=== PATIENT | female | born 1980 | race Caucasian/White ===

== ENCOUNTER 2016-11-29 18:17 | Emergency (ER) | payer OTHER ==
[2016-11-29 18:33] VITALS: BP 140/92
--- NOTE | 2016-11-29 19:03 | EDM.PDOC ---
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 feels slightly better now but hurts and feels not normal. - Related Data Allergies/ADRs: Allergies Allergy/AdvReac Type Severity Reaction Status Date / Time acetaminophen Allergy Itching Verified 11/18/15 16:41 adhesive Allergy Other Verified 11/18/15 16:41 Latex, Natural Rubber Allergy Hives Verified 11/18/15 16:41 Penicillins Allergy Anaphylactic Verified 11/18/15 16:41 Shock Home Meds: Home Meds Ibuprofen 200 mg PO ASDIRECTED PRN 11/18/15 [History] Past Medical History HEENT History: Reports: Impaired vision Other HEENT History: wears glasses Cardiovascular History: Reports: Blood clots/VTE/DVT Respiratory History: Reports: PE Other Respiratory History: blood clots a month and half go, was in [place], sent her home on lovenox shots, not in hospital Genitourinary History: Reports: None 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 , 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 Musculoskeletal History: Reports: None Neurological History: Reports: None Psychiatric History: Reports: None Endocrine/Metabolic History: Reports: Obesity/BMI 30+ Hematologic History: Reports: None Other Hematologic History: protien c deficiency Immunologic History: Reports: None Oncologic (Cancer) History: Reports: None Dermatologic History: Reports: None - Infectious Disease History Infectious Disease History: Reports: Chicken pox - Past Surgical History Head Surgeries/Procedures: Reports: None GI Surgical History: Reports: Appendectomy Female Surgical History: Reports: section, D&C Other Female Surgeries/Procedures: ectopic Social & Family History - Family History Family Medical History: Noncontributory - Tobacco Use Smoking Status *Q: Current Every Day Smoker Years of Tobacco use: 23 Packs/Tins Daily: 0.2 Used Tobacco, but Quit: Yes Month Tobacco Last Used: november Second Hand Smoke Exposure: Yes - Caffeine Use Caffeine Use: Reports: Coffee, Soda, Tea - Recreational Drug Use Recreational Drug Use: No - Sexual History Sexual History: Reports: Sexually active - Living Situation & Occupation Living situation: Reports: with significant other Occupation: employed ED ROS GENERAL - Review of Systems Review Of Systems: ROS reveals no pertinent complaints other than HPI. ED EXAM, HEAD INJURY - Physical Exam Exam: See Below Exam Limited By: No limitations General Appearance: alert, WD/WN, mild distress, other (crying) Head: scalp swelling, scalp tenderness, other (top of head). No: Luu's Sign , raccoon eyes Nexus Criteria: No: posterior, midline cervical tenderness, evidence of intoxication, altered level of consciousness, focal neurological deficit, painful distracting injuries Eyes: bilateral eye: PERRL (pupils ER @ 4mm) Ears: hearing grossly normal Throat/Mouth: Normal voice, No airway compromise Neck: non-tender, full range of motion Respiratory: no respiratory distress Cardiovascular: regular rate, rhythm GI/Abdominal Exam (Abbreviated): soft, non tender Neurologic: no motor/sensory deficits, alert, oriented x 3, other (crying) Skin: Normal color, Warm/dry Course - Vital Signs Last Recorded V/S: Last Vital Signs Temp 36.8 C 11/29/16 18:32 Pulse 97 11/29/16 18:32 Resp 16 11/29/16 18:32 BP 140/92 H 11/29/16 18:32 Pulse Ox 97 11/29/16 18:32 - Orders/Labs/Meds Orders: Active Orders 24 hr Category Date Time Status Head wo Cont [CT] Urgent Exams 11/29/16 19:00 Taken - Re-Assessments/Exams Free Text/Narrative Re-Assessment/Exam: 11/29/16 19:43 results discussed with Pt. feeling better but head still hurts. Departure - Departure Time of Disposition: 19:44 Disposition: Home, Self-Care 01 Condition: good Clinical Impression: Concussion Qualifiers: Encounter type: initial encounter Loss of consciousness presence/duration: without LOC Qualified Code(s): S06.0X0A - Concussion without loss of consciousness, initial encounter Instructions: Concussion, Adult, [id number] Forms: ED Department Discharge Additional Instructions: 1) rest 2) ice to swelling 3) recheck if has further signs of concussion - My Orders Last 24 Hours: My Active Orders 11/29/16 19:00 Head wo Cont [CT] Urgent - Assessment/Plan Last 24 Hours: My Active Orders 11/29/16 19:00 Head wo Cont [CT] Urgent
== END 2016-11-29 19:50 | disposition home or self-care (01) ==
LOC: DL.ED 18:17
DX: S06.0X0A Concussion without loss of consciousness, initial encounter (principal); W22.09XA Striking against other stationary object, initial encounter; Z86.718 Personal history of other venous thrombosis and embolism; E66.9 Obesity, unspecified; Z68.30 Body mass index [BMI] 30.0-30.9, adult; F17.200 Nicotine dependence, unspecified, uncomplicated; Z88.0 Allergy status to penicillin; Z91.040 Latex allergy status; Z88.8 Allergy status to other drugs, medicaments and biological substances; Z91.09 Other allergy status, other than to drugs and biological substances
CPT/HCPCS: 70450; 99283

== ENCOUNTER 2017-01-02 17:32 | Emergency (ER) | payer OTHER ==
--- NOTE | 2017-01-02 17:36 | EDM.PDOC ---
ED HPI GENERAL MEDICAL PROBLEM - General Chief Complaint: Lower Extremity Injury/Pain Stated Complaint: LEG PAIN [id number] Time Seen by Provider: 01/02/17 17:36 Source of Information: Reports: Patient, Old Records, RN, RN Notes Reviewed History Limitations: Reports: No Limitations - History of Present Illness INITIAL COMMENTS - FREE TEXT/NARRATIVE: Pt reports Hx of B/L lower extremity DVTs and PEs who lost her insurance and has not been on coumadin for about 2 to 3 months. Pt developed aching in the B/ L legs 3 weeks ago and came to the ER today concerned that she should be back on the anticoagulant tx. Now she has insurance and can get her medication. Denies CP, cough, SOB, or any other new Sx's. Onset: Gradual Duration: Constant Location: Reports: Lower Extremity, Left, Lower Extremity, Right Quality: Reports: Ache Severity: Moderate Improves with: Reports: None Worsens with: Reports: None Context: Denies: Activity, Exercise, Lifting, Sick Contact, Trauma Associated Symptoms: Reports: No Other Symptoms Bilateral Lower Leg Pain Score (Numeric/FACES): 6 - Related Data Allergies Allergy/AdvReac Type Severity Reaction Status Date / Time acetaminophen Allergy Itching Verified 11/18/15 16:41 adhesive Allergy Other Verified 11/18/15 16:41 Latex, Natural Rubber Allergy Hives Verified 11/18/15 16:41 Penicillins Allergy Anaphylactic Verified 11/18/15 16:41 Shock Home Meds: Home Meds Ibuprofen 200 mg PO ASDIRECTED PRN 11/18/15 [History] Past Medical History HEENT History: Reports: Impaired Vision Other HEENT History: wears glasses Cardiovascular History: Reports: Blood Clots/VTE/DVT Respiratory History: Reports: PE Other Respiratory History: blood clots a month and half go, was in [place], sent her home on lovenox shots, not in hospital Genitourinary History: Reports: None 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 , 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 Musculoskeletal History: Reports: None Neurological History: Reports: None Psychiatric History: Reports: None Endocrine/Metabolic History: Reports: Obesity/BMI 30+ Hematologic History: Reports: None Other Hematologic History: protien c deficiency Immunologic History: Reports: None Oncologic (Cancer) History: Reports: None Dermatologic History: Reports: None - Infectious Disease History Infectious Disease History: Reports: Chicken Pox - Past Surgical History HEENT Surgical History: Reports: Other (See Below) Female Surgical History: Reports: Section, D&C Social & Family History - Family History Family Medical History: Noncontributory - Tobacco Use Smoking Status *Q: Current Every Day Smoker Years of Tobacco use: 23 Packs/Tins Daily: 0.2 Used Tobacco, but Quit: Yes Month Tobacco Last Used: november Second Hand Smoke Exposure: Yes - Caffeine Use Caffeine Use: Reports: Coffee, Soda, Tea - Recreational Drug Use Recreational Drug Use: No - Sexual History Sexual History: Reports: Sexually Active - Living Situation & Occupation Living situation: Reports: with Significant Other Occupation: Employed Review of Systems - Review of Systems Review Of Systems: ROS reveals no pertinent complaints other than HPI. ED EXAM, GENERAL - Physical Exam Exam: See Below Exam Limited By: No Limitations General Appearance: Alert, WD/WN, No Apparent Distress, Obese Nose: Normal Inspection, Normal Mucosa, No Blood Throat/Mouth: Normal Inspection Head: Atraumatic, Normocephalic Neck: Normal Inspection, Supple, Non-Tender, Full Range of Motion Respiratory/Chest: No Respiratory Distress, Lungs Clear, Normal Breath Sounds, No Accessory Muscle Use, Chest Non-Tender Cardiovascular: Normal Peripheral Pulses, Regular Rate, Rhythm, No Edema, No Gallop, No JVD, No Murmur, No Rub GI/Abdominal: Normal Bowel Sounds, Soft, Non-Tender, No Distention Back Exam: Normal Inspection, Full Range of Motion. No: CVA Tenderness (L), CVA Tenderness (R) Extremities: Normal Range of Motion, No Pedal Edema, Normal Capillary Refill, Leg Pain (B/L generalized lower leg tenderness, no erythema, swelling, or increased warmth.). No: Kathi's Sign Neurological: Alert, Oriented, CN II-XII Intact, Normal Cognition, No Motor/ Sensory Deficits Psychiatric: Anxious Skin Exam: Warm, Dry, Intact, Normal Color, No Rash Course - Vital Signs Last Recorded V/S: Last Vital Signs Temp 36.0 C 01/02/17 17:42 Pulse 87 01/02/17 17:42 Resp 18 01/02/17 17:42 BP 118/60 01/02/17 17:42 Pulse Ox 98 01/02/17 17:42 - Orders/Labs/Meds Labs: Laboratory Tests 0601/02/17 01/02/17 Range/Units 18:05 18:05 18:05 WBC 8.8 (5.0-10.0) 10^3/uL RBC 3.52 L (4.2-5.4) 10^6/uL Hgb 12.3 (12.0-16.0) g/dL Hct 36.6 L (37.0-47.0) % MCV 104.0 H (80-100) fL MCH 34.9 H (27.0-34.0) pg MCHC 33.6 (33.0-35.0) g/dL Plt Count 216 (150-450) 10^3/uL Neut % (Auto) 69.5 (42.2-75.2) % Lymph % (Auto) 21.3 (20.5-50.1) % Casey % (Auto) 7.1 (2-8) % Eos % (Auto) 1.9 (1.0-3.0) % Baso % (Auto) 0.2 (0.0-1.0) % D-Dimer, Quantitative 375 (0-400) ng/mL Sodium 135 (135-145) mmol/L Potassium 4.0 (3.6-5.0) mmol/L Chloride 102 (101-111) mmol/L Carbon Dioxide 26.0 (21.0-31.0) mmol/L Anion Gap 11.0 BUN 14 (7-18) mg/dL Creatinine 0.7 (0.6-1.3) mg/dL Est Cr Clr Drug Dosing TNP Estimated GFR (MDRD) > 60 BUN/Creatinine Ratio 20.00 Glucose 100 (74-105) mg/dL Calcium 8.9 (8.4-10.2) mg/dl Total Bilirubin 0.4 (0.2-1.0) mg/dL AST 24 (10-42) IU/L ALT 20 (10-60) IU/L Alkaline Phosphatase 81 (42-121) IU/L Total Protein 6.7 (6.7-8.2) g/dl Albumin 3.7 (3.2-5.5) g/dl Globulin 3.0 Albumin/Globulin Ratio 1.23 HCG, Qual Negative Meds: Medications Discontinued Medications Generic Name Dose Route Start Last Admin Trade Name Freq PRN Reason Stop Dose Admin Enoxaparin Sodium 100 mg 01/02/17 18:30 Lovenox SUBCUT 01/02/17 18:31 ONETIME ONE Tramadol HCl 50 mg 01/02/17 18:02 01/02/17 18:08 Ultram PO 01/02/17 18:03 50 mg ONETIME ONE Administration - Re-Assessments/Exams Free Text/Narrative Re-Assessment/Exam: 01/02/17 18:36 Pt supposed to be on prison anticoagulation (coumadin), but self d/c'd due to insurance loss. No US avail. in [place] for L[place]E. venous doppler, and pt declines to be transferred for US. It is reasonable given pt's Hx, to simply restart her intended anticoagulation and not obtain imaging due to her new leg Sx's. Departure - Departure Time of Disposition: 18:41 Disposition: Home, Self-Care 01 Condition: good Clinical Impression: Patient noncompliant with anticoagulant medication DVT (deep venous thrombosis) Qualifiers: DVT location: lower extremity Affected thrombotic vein of extremity: unspecified vein of extremity Laterality: unspecified laterality Chronicity: chronic Qualified Code(s): I82.509 - Chronic embolism and thrombosis of unspecified deep veins of unspecified lower extremity - Discharge Information Instructions: Deep Vein Thrombosis, Warfarin: What You Need to Know Forms: ED Department Discharge Additional Instructions: Use Lovenox 100mg injections once daily for three days beginning tomorrow, ThursdayJanuary 03. Begin Coumadin (Warfarin) 10mg one tablet every day. Follow up Thursday for a Protime (INR, the coumadin blood test). Follow up in clinic with Dr. Ley for recheck in 6 to 7 days.
[2017-01-02 17:43] VITALS: BP 118/60
[2017-01-02] MEDS ORDERED: traMADol 50 MG Tab PO ONE (18:02)
[2017-01-02 18:30] LABS: CHLORIDE,CL 102 mmol/L (101-111); SODIUM,NA 135 mmol/L (135-145)
[2017-01-02] MEDS ORDERED: Enoxaparin 100 MG/1 ML Syringe SUBCUT ONE (18:30)
== END 2017-01-02 18:54 | disposition home or self-care (01) ==
LOC: DL.ED 17:32
DX: I82.503 Chronic embolism and thrombosis of unspecified deep veins of lower extremity, bilateral (principal); E66.9 Obesity, unspecified; F17.210 Nicotine dependence, cigarettes, uncomplicated; Z79.01 Long term (current) use of anticoagulants; Z98.890 Other specified postprocedural states; Z88.6 Allergy status to analgesic agent; Z91.09 Other allergy status, other than to drugs and biological substances; Z91.040 Latex allergy status; Z88.0 Allergy status to penicillin
CPT/HCPCS: 36415; 80053; 84703; 85025; 85379; 96372; 99283; A9270; J1650

== ENCOUNTER 2017-02-19 18:56 | Emergency (ER) | payer OTHER ==
--- NOTE | 2017-02-19 19:42 | EDM.PDOC ---
ED HPI GENERAL MEDICAL PROBLEM - General Chief Complaint: Neurological Problem Stated Complaint: HAD A SEIZURE AM, NOT OK, Time Seen by Provider: 02/19/17 19:37 Source of Information: Reports: Patient History Limitations: Reports: No Limitations - History of Present Illness INITIAL COMMENTS - FREE TEXT/NARRATIVE: states has h/o seizures a long time ago, none till this am. works at [employer] and got home late and woke up ~ 8am and was doing some house cleaning then woke up on bathroom floor with pain left side of head and doesn't know how she got there. layed on floor for a while then rested in bed till boyfriend got home to bring her here. c/o headache and painful tongue and also wet her pants. 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 also take Janovet for blood thinner for protein C deficiency which causes clots to form all over her body. sees Dr Mejia who just started her on this since they have problems in regulating her clotting problems. Headache Pain Score (Numeric/FACES): 8 - Related Data Allergies Allergy/AdvReac Type Severity Reaction Status Date / Time acetaminophen Allergy Itching Verified 11/18/15 16:41 adhesive Allergy Other Verified 11/18/15 16:41 Latex, Natural Rubber Allergy Hives Verified 11/18/15 16:41 Penicillins Allergy Anaphylactic Verified 11/18/15 16:41 Shock Home Meds: Home Meds Ibuprofen 200 mg PO ASDIRECTED PRN 11/18/15 [History] Past Medical History HEENT History: Reports: Impaired Vision Other HEENT History: wears glasses Cardiovascular History: Reports: Blood Clots/VTE/DVT Respiratory History: Reports: PE Other Respiratory History: blood clots a month and half go, was in [place], sent her home on lovenox shots, not in hospital Genitourinary History: Reports: None 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 , 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 Musculoskeletal History: Reports: None Neurological History: Reports: None Psychiatric History: Reports: None Endocrine/Metabolic History: Reports: Obesity/BMI 30+ Hematologic History: Reports: None Other Hematologic History: protien c deficiency Immunologic History: Reports: None Oncologic (Cancer) History: Reports: None Dermatologic History: Reports: None - Infectious Disease History Infectious Disease History: Reports: Chicken Pox - Past Surgical History Head Surgeries/Procedures: Reports: None HEENT Surgical History: Reports: Other (See Below) GI Surgical History: Reports: Appendectomy Female Surgical History: Reports: Section, D&C Social & Family History - Family History Family Medical History: Noncontributory - Tobacco Use Smoking Status *Q: Light Tobacco Smoker Years of Tobacco use: 10 Packs/Tins Daily: 0.1 Used Tobacco, but Quit: Yes Month Tobacco Last Used: november Second Hand Smoke Exposure: Yes - Caffeine Use Caffeine Use: Reports: Coffee, Soda, Tea - Recreational Drug Use Recreational Drug Use: No - Sexual History Sexual History: Reports: Sexually Active - Living Situation & Occupation Living situation: Reports: with Significant Other Occupation: Employed ED ROS GENERAL - Review of Systems Review Of Systems: ROS reveals no pertinent complaints other than HPI. - Physical Exam Exam: See Below Exam Limited By: No Limitations General Appearance: Alert, WD/WN, Anxious, Mild Distress, Other (crying upset apprehensive) Eye Exam: Bilateral Eye: PERRL (pupils ess ER @ 4mm) Ears: Hearing Grossly Normal Throat/Mouth: Normal Voice, No Airway Compromise Head Exam: Scalp Swelling, Other (left parietal tenderness minor swelling, no O/ B) Neck: Non-Tender, Full Range of Motion Respiratory/Chest: No Respiratory Distress Cardiovascular: Regular Rate, Rhythm GI/Abdominal: Soft, Non-Tender Neuro Exam (Abbreviated): Alert, Oriented, Normal Cognition, No Motor/Sensory Deficits Psychiatric: Anxious, Tearful Skin Exam: Warm, Dry Course - Vital Signs Last Recorded V/S: Last Vital Signs Temp 36.4 C 02/19/17 20:31 Pulse 80 02/19/17 20:31 Resp 16 02/19/17 20:31 BP 117/59 L 02/19/17 20:31 Pulse Ox 98 02/19/17 20:31 - Orders/Labs/Meds Orders: Active Orders 24 hr Category Date Time Status Butorphanol [Stadol] Med 02/19/17 21:00 Once 2 mg IM ONETIME ONE Promethazine [Phenergan] Med 02/19/17 21:00 Once 25 mg IM ONETIME ONE Labs: Laboratory Tests 02/19/17 02/19/17 02/19/17 Range/Units 19:46 19:46 19:46 WBC 7.2 (5.0-10.0) 10^3/uL RBC 3.92 L (4.2-5.4) 10^6/uL Hgb 13.6 (12.0-16.0) g/dL Hct 40.1 (37.0-47.0) % MCV 102.3 H (80-100) fL MCH 34.7 H (27.0-34.0) pg MCHC 33.9 (33.0-35.0) g/dL Plt Count 218 (150-450) 10^3/uL Neut % (Auto) 62.6 (42.2-75.2) % Lymph % (Auto) 27.0 (20.5-50.1) % Perkins % (Auto) 8.0 (2-8) % Eos % (Auto) 2.1 (1.0-3.0) % Baso % (Auto) 0.3 (0.0-1.0) % PT 15.7 H (9.0-12.0) SEC INR 1.6 H (0.9-1.2) APTT 28.5 (22.0-34.0) SEC Sodium 138 (135-145) mmol/L Potassium 4.1 (3.6-5.0) mmol/L Chloride 105 (101-111) mmol/L Carbon Dioxide 25.0 (21.0-31.0) mmol/L Anion Gap 12.1 BUN 13 (7-18) mg/dL Creatinine 0.6 (0.6-1.3) mg/dL Est Cr Clr Drug Dosing TNP Estimated GFR (MDRD) > 60 BUN/Creatinine Ratio 21.66 Glucose 131 H (74-105) mg/dL Calcium 9.0 (8.4-10.2) mg/dl Total Bilirubin 0.2 (0.2-1.0) mg/dL AST 20 (10-42) IU/L ALT 19 (10-60) IU/L Alkaline Phosphatase 76 (42-121) IU/L Creatine Kinase (26-174) IU/L Total Protein 6.4 L (6.7-8.2) g/dl Albumin 3.6 (3.2-5.5) g/dl Globulin 2.8 Albumin/Globulin Ratio 1.29 07/20/17 Range/Units 19:46 WBC (5.0-10.0) 10^3/uL RBC (4.2-5.4) 10^6/uL Hgb (12.0-16.0) g/dL Hct (37.0-47.0) % MCV (80-100) fL MCH (27.0-34.0) pg MCHC (33.0-35.0) g/dL Plt Count (150-450) 10^3/uL Neut % (Auto) (42.2-75.2) % Lymph % (Auto) (20.5-50.1) % Perkins % (Auto) (2-8) % Eos % (Auto) (1.0-3.0) % Baso % (Auto) (0.0-1.0) % PT (9.0-12.0) SEC INR (0.9-1.2) APTT (22.0-34.0) SEC Sodium (135-145) mmol/L Potassium (3.6-5.0) mmol/L Chloride (101-111) mmol/L Carbon Dioxide (21.0-31.0) mmol/L Anion Gap BUN (7-18) mg/dL Creatinine (0.6-1.3) mg/dL Est Cr Clr Drug Dosing Estimated GFR (MDRD) BUN/Creatinine Ratio Glucose (74-105) mg/dL Calcium (8.4-10.2) mg/dl Total Bilirubin (0.2-1.0) mg/dL AST (10-42) IU/L ALT (10-60) IU/L Alkaline Phosphatase (42-121) IU/L Creatine Kinase 144 (26-174) IU/L Total Protein (6.7-8.2) g/dl Albumin (3.2-5.5) g/dl Globulin Albumin/Globulin Ratio Meds: Medications Discontinued Medications Generic Name Dose Route Start Last Admin Trade Name Freq PRN Reason Stop Dose Admin Butorphanol Tartrate 2 mg 02/19/17 21:00 Stadol IM 02/19/17 21:01 ONETIME ONE Promethazine HCl 25 mg 02/19/17 21:00 Phenergan IM 02/19/17 21:01 ONETIME ONE Tramadol HCl 50 mg 02/19/17 20:28 02/19/17 20:35 Ultram PO 02/19/17 20:29 50 mg ONETIME ONE Administration - Re-Assessments/Exams Free Text/Narrative Re-Assessment/Exam: 02/19/17 20:29 results discussed with Pt who states her INR hasn't been within range for about a year, last INR last week and was 1.7 had coumadin increased to 20mg daily, was Tx in [place] prior to moving here and they used to give her lovenox injection when INR low. still pending referral for HAEMATOLOGY. 02/19/17 21:01 results discussed with Pt. Departure - Departure Time of Disposition: 21:01 Disposition: Home, Self-Care 01 Condition: Good Clinical Impression: Seizure - Discharge Information Instructions: Epilepsy, [id number] Forms: ED Department Discharge Additional Instructions: 1) rest 2) see family doctor tomorrow for HEAMATOLOGY REFERRAL 3) recheck if there is any change or concern - My Orders Last 24 Hours: My Active Orders 02/19/17 21:00 Butorphanol [Stadol] 2 mg IM ONETIME ONE Promethazine [Phenergan] 25 mg IM ONETIME ONE - Assessment/Plan Last 24 Hours: My Active Orders 02/19/17 21:00 Butorphanol [Stadol] 2 mg IM ONETIME ONE Promethazine [Phenergan] 25 mg IM ONETIME ONE
[2017-02-19 20:13] LABS: CHLORIDE,CL 105 mmol/L (101-111); SODIUM,NA 138 mmol/L (135-145)
[2017-02-19] MEDS ORDERED: traMADol 50 MG Tab PO ONE (20:28)
[2017-02-19 20:34] VITALS: BP 117/59
[2017-02-19] MEDS ORDERED: Butorphanol 2 MG/ML SDV IM ONE (21:00)
[2017-02-19] MEDS ORDERED: Promethazine 25 MG/ML SDV IM ONE (21:00)
== END 2017-02-19 21:29 | disposition home or self-care (01) ==
LOC: DL.ED 18:56
DX: R56.9 Unspecified convulsions (principal); E66.9 Obesity, unspecified; F17.210 Nicotine dependence, cigarettes, uncomplicated; Z90.49 Acquired absence of other specified parts of digestive tract; Z86.718 Personal history of other venous thrombosis and embolism; Z91.09 Other allergy status, other than to drugs and biological substances; Z91.040 Latex allergy status; Z88.0 Allergy status to penicillin; Z88.6 Allergy status to analgesic agent
CPT/HCPCS: 36415; 70450; 80053; 82550; 85025; 85610; 85730; 96372; 99284; A9270; J0595; J2550

== ENCOUNTER 2017-03-06 14:06 | Observation (INO) | payer OTHER ==
--- NOTE | 2017-03-06 14:35 | EDM.PDOC ---
ED HPI GENERAL MEDICAL PROBLEM - General Chief Complaint: Neurological Problem Stated Complaint: 3 SEIZURES IN 24 HRS Time Seen by Provider: 03/06/17 14:35 Source of Information: Reports: Patient, Old Records, RN, RN Notes Reviewed History Limitations: Reports: No Limitations - History of Present Illness INITIAL COMMENTS - FREE TEXT/NARRATIVE: Arrives from home by POV with complaint of 3 seizures since last evening. First seizure occurred while patient was at work and was witnessed by her co-worker. She reports it lasted a "few minutes" and consisted of generalized shaking. During the night and again this morning she had 2 more seizures and was incontinent of urine both times. Denies fever, chills, headache or visual changes. Severity: Moderate Improves with: Reports: None Worsens with: Reports: None Associated Symptoms: Reports: No Other Symptoms - Related Data Allergies Allergy/AdvReac Type Severity Reaction Status Date / Time acetaminophen Allergy Itching Verified 11/18/15 16:41 adhesive Allergy Other Verified 11/18/15 16:41 Latex, Natural Rubber Allergy Hives Verified 11/18/15 16:41 Penicillins Allergy Anaphylactic Verified 11/18/15 16:41 Shock Home Meds: Home Meds Ibuprofen 200 mg PO ASDIRECTED PRN 11/18/15 [History] Warfarin Sodium [Jantoven] 10 mg PO DAILY 03/06/17 [History] Past Medical History HEENT History: Reports: Impaired Vision Other HEENT History: wears glasses Cardiovascular History: Reports: Blood Clots/VTE/DVT Respiratory History: Reports: PE Other Respiratory History: blood clots a month and half go, was in [place], sent her home on lovenox shots, not in hospital Genitourinary History: Reports: None 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 , 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 Musculoskeletal History: Reports: None Neurological History: Reports: Seizure Psychiatric History: Reports: None Endocrine/Metabolic History: Reports: Obesity/BMI 30+ Hematologic History: Reports: None Other Hematologic History: protien c deficiency Immunologic History: Reports: None Oncologic (Cancer) History: Reports: None Dermatologic History: Reports: None - Infectious Disease History Infectious Disease History: Reports: Chicken Pox - Past Surgical History Head Surgeries/Procedures: Reports: None HEENT Surgical History: Reports: Other (See Below) GI Surgical History: Reports: Appendectomy Female Surgical History: Reports: Section, D&C Social & Family History - Family History Family Medical History: Noncontributory - Tobacco Use Smoking Status *Q: Light Tobacco Smoker Years of Tobacco use: 10 Packs/Tins Daily: 0.1 Used Tobacco, but Quit: Yes Month Tobacco Last Used: november Second Hand Smoke Exposure: Yes - Caffeine Use Caffeine Use: Reports: Coffee, Soda, Tea - Recreational Drug Use Recreational Drug Use: No - Sexual History Sexual History: Reports: Sexually Active - Living Situation & Occupation Living situation: Reports: with Significant Other Occupation: Employed ED ROS GENERAL - Review of Systems Review Of Systems: ROS reveals no pertinent complaints other than HPI. - Physical Exam Exam: See Below Exam Limited By: No Limitations General Appearance: Alert, WD/WN, No Apparent Distress, Obese Eye Exam: Bilateral Eye: Normal Inspection Ears: Normal External Exam, Normal Canal, Hearing Grossly Normal, Normal TMs Nose: Normal Inspection, Normal Mucosa, No Blood Throat/Mouth: Normal Inspection, Normal Lips, Normal Teeth, Normal Gums, Normal Oropharynx, Normal Voice, No Airway Compromise Head Exam: Atraumatic, Normocephalic Neck: Normal Inspection, Supple, Non-Tender, Full Range of Motion Respiratory/Chest: No Respiratory Distress, Lungs Clear, Normal Breath Sounds, No Accessory Muscle Use, Chest Non-Tender Cardiovascular: Normal Peripheral Pulses, Regular Rate, Rhythm, No Edema, No Gallop, No JVD, No Murmur, No Rub GI/Abdominal: Other (Benign and obese.) (Female) Exam: Deferred Rectal (Female) Exam: Deferred Neuro Exam (Abbreviated): Alert, Oriented, CN II-XII Intact, Normal Cognition, Normal Gait, Normal Reflexes, No Motor/Sensory Deficits Back Exam: Normal Inspection, Full Range of Motion, NT Extremities: Normal Inspection, Normal Range of Motion, Non-Tender, No Pedal Edema, Normal Capillary Refill Psychiatric: Normal Affect, Normal Mood Skin Exam: Warm, Dry, Intact, Normal Color, No Rash EKG INTERPRETATION EKG Date: 03/06/17 Time: 15:17 Rhythm: Other (sinus rhythm) Rate (Beats/Min): 70 [place]: Normal P-Wave: Present QRS: Normal ST-T: Normal QT: Normal Course - Vital Signs Last Recorded V/S: Last Vital Signs Temp 36.6 C 03/06/17 14:51 Pulse 79 03/06/17 14:51 Resp 14 03/06/17 14:51 BP 121/79 03/06/17 14:51 Pulse Ox 97 03/06/17 14:51 - Orders/Labs/Meds Orders: Active Orders 24 hr Category Date Time Status EKG 12 Lead [EKG Documentation Completion] [] STAT Care 03/06/17 15:02 Active Peripheral IV Care [RC] . DIRECTED Care 03/06/17 15:03 Active Sodium Chloride 0.9% [Saline Flush] Med 03/06/17 15:02 Active 10 ml FLUSH ASDIRECTED PRN Peripheral IV Insertion Adult [OM.PC] Stat Oth 03/06/17 15:02 Ordered Seizure Precautions [OM.PC] Routine Oth 03/06/17 15:05 Ordered Medication Orders Sodium Chloride (Saline Flush) 10 ml FLUSH ASDIRECTED PRN PRN Reason: Keep Vein Open Labs: Laboratory Tests 03/06/17 03/06/17 03/06/17 Range/Units 14:25 14:25 14:25 WBC (5.0-10.0) 10^3/uL RBC (4.2-5.4) 10^6/uL Hgb (12.0-16.0) g/dL Hct (37.0-47.0) % MCV (80-100) fL MCH (27.0-34.0) pg MCHC (33.0-35.0) g/dL Plt Count (150-450) 10^3/uL Neut % (Auto) (42.2-75.2) % Lymph % (Auto) (20.5-50.1) % [place] % (Auto) (2-8) % Eos % (Auto) (1.0-3.0) % Baso % (Auto) (0.0-1.0) % Sodium (135-145) mmol/L Potassium (3.6-5.0) mmol/L Chloride (101-111) mmol/L Carbon Dioxide (21.0-31.0) mmol/L Anion Gap BUN (7-18) mg/dL Creatinine (0.6-1.3) mg/dL Est Cr Clr Drug Dosing Estimated GFR (MDRD) BUN/Creatinine Ratio Glucose (74-105) mg/dL Calcium (8.4-10.2) mg/dl Magnesium (1.8-2.5) mg/dL Total Bilirubin (0.2-1.0) mg/dL AST (10-42) IU/L ALT (10-60) IU/L Alkaline Phosphatase (42-121) IU/L Lactate Dehydrogenase (91-180) IU/L Creatine Kinase (26-174) IU/L Total Protein (6.7-8.2) g/dl Albumin (3.2-5.5) g/dl Globulin Albumin/Globulin Ratio TSH, Ultra Sensitive (0.35-7.0) uIu/mL Urine Color Light yellow (YELLOW) Urine Appearance Slightly cloudy (CLEAR) Urine pH 5.5 (5.0-9.0) Ur Specific [place] 1.015 (1.005-1.030) Urine Protein Negative (NEGATIVE) Urine Glucose (UA) Negative (NEGATIVE) Urine Ketones Negative (NEGATIVE) Urine Occult Blood Small H (NEGATIVE) Urine Nitrite Negative (NEGATIVE) Urine Bilirubin Negative (NEGATIVE) Urine Urobilinogen 0.2 (0.2-1.0) mg/dL Ur Leukocyte Esterase Negative (NEGATIVE) Urine RBC 0-5 /HPF Urine WBC 0-5 (0-5/HPF) /HPF Ur Epithelial Cells Few /HPF Urine Bacteria Rare (0-FEW/HPF) /HPF Urine Mucus Rare /LPF Urine Yeast Rare H (0/HPF) /HPF Urine HCG, Qual Negative Urine Opiates Screen Negative (NEGATIVE) Ur Oxycodone Screen Negative (NEGATIVE) Urine Methadone Screen Negative (NEGATIVE) Ur Barbiturates Screen Negative (NEGATIVE) U Tricyclic Antidepress Negative (NEGATIVE) Ur Phencyclidine Scrn Negative (NEGATIVE) Ur Amphetamine Screen Negative (NEGATIVE) U Methamphetamines Scrn Negative (NEGATIVE) Urine MDMA Screen Negative (NEGATIVE) U Benzodiazepines Scrn Negative (NEGATIVE) Urine Cocaine Screen Negative (NEGATIVE) U Marijuana (THC) Screen Negative (NEGATIVE) Ethyl Alcohol mg/dL 03/06/17 03/06/17 03/06/17 Range/Units 15:36 15:36 15:36 WBC 7.3 (5.0-10.0) 10^3/uL RBC 3.71 L (4.2-5.4) 10^6/uL Hgb 13.4 (12.0-16.0) g/dL Hct 37.6 (37.0-47.0) % MCV 101.3 H (80-100) fL MCH 36.1 H (27.0-34.0) pg MCHC 35.6 H (33.0-35.0) g/dL Plt Count 238 (150-450) 10^3/uL Neut % (Auto) 65.5 (42.2-75.2) % Lymph % (Auto) 25.7 (20.5-50.1) % [place] % (Auto) 6.0 (2-8) % Eos % (Auto) 2.5 (1.0-3.0) % Baso % (Auto) 0.3 (0.0-1.0) % Sodium 138 (135-145) mmol/L Potassium 4.4 (3.6-5.0) mmol/L Chloride 103 (101-111) mmol/L Carbon Dioxide 26.0 (21.0-31.0) mmol/L Anion Gap 13.4 BUN 14 (7-18) mg/dL Creatinine 0.7 (0.6-1.3) mg/dL Est Cr Clr Drug Dosing TNP Estimated GFR (MDRD) > 60 BUN/Creatinine Ratio 20.00 Glucose 143 H (74-105) mg/dL Calcium 8.9 (8.4-10.2) mg/dl Magnesium 1.9 (1.8-2.5) mg/dL Total Bilirubin 0.5 (0.2-1.0) mg/dL AST 21 (10-42) IU/L ALT 19 (10-60) IU/L Alkaline Phosphatase 85 (42-121) IU/L Lactate Dehydrogenase 155 (91-180) IU/L Creatine Kinase 174 (26-174) IU/L Total Protein 6.5 L (6.7-8.2) g/dl Albumin 3.7 (3.2-5.5) g/dl Globulin 2.8 Albumin/Globulin Ratio 1.32 TSH, Ultra Sensitive 1.28 (0.35-7.0) uIu/mL Urine Color (YELLOW) Urine Appearance (CLEAR) Urine pH (5.0-9.0) Ur Specific [place] (1.005-1.030) Urine Protein (NEGATIVE) Urine Glucose (UA) (NEGATIVE) Urine Ketones (NEGATIVE) Urine Occult Blood (NEGATIVE) Urine Nitrite (NEGATIVE) Urine Bilirubin (NEGATIVE) Urine Urobilinogen (0.2-1.0) mg/dL Ur Leukocyte Esterase (NEGATIVE) Urine RBC /HPF Urine WBC (0-5/HPF) /HPF Ur Epithelial Cells /HPF Urine Bacteria (0-FEW/HPF) /HPF Urine Mucus /LPF Urine Yeast (0/HPF) /HPF Urine HCG, Qual Urine Opiates Screen (NEGATIVE) Ur Oxycodone Screen (NEGATIVE) Urine Methadone Screen (NEGATIVE) Ur Barbiturates Screen (NEGATIVE) U Tricyclic Antidepress (NEGATIVE) Ur Phencyclidine Scrn (NEGATIVE) Ur Amphetamine Screen (NEGATIVE) U Methamphetamines Scrn (NEGATIVE) Urine MDMA Screen (NEGATIVE) U Benzodiazepines Scrn (NEGATIVE) Urine Cocaine Screen (NEGATIVE) U Marijuana (THC) Screen (NEGATIVE) Ethyl Alcohol < 5 mg/dL Meds: Medications Generic Name Dose Route Start Last Admin Trade Name Freq PRN Reason Stop Dose Admin Sodium Chloride 10 ml 03/06/17 15:02 Saline Flush FLUSH ASDIRECTED PRN Keep Vein Open Departure - Departure Time of Disposition: 16:57 ((Admit to Dr. Johnson)) Disposition: Refer to Observation Condition: Serious Clinical Impression: Recurrent seizures - Discharge Information Forms: ED Department Discharge - My Orders Last 24 Hours: My Active Orders 03/06/17 15:02 EKG 12 Lead [EKG Documentation Completion] [RC] STAT Sodium Chloride 0.9% [Saline Flush] 10 ml FLUSH ASDIRECTED PRN Peripheral IV Insertion Adult [OM.PC] Stat 03/06/17 15:03 Peripheral IV Care [RC] . DIRECTED 03/06/17 15:05 Seizure Precautions [OM.PC] Routine - Assessment/Plan Last 24 Hours: My Active Orders 03/06/17 15:02 EKG 12 Lead [EKG Documentation Completion] [RC] STAT Sodium Chloride 0.9% [Saline Flush] 10 ml FLUSH ASDIRECTED PRN Peripheral IV Insertion Adult [OM.PC] Stat 03/06/17 15:03 Peripheral IV Care [RC] . DIRECTED 03/06/17 15:05 Seizure Precautions [OM.PC] Routine
[2017-03-06] MEDS ORDERED: Sodium Chloride 0.9% 10 ML Syringe FLUSH PRN ×2 (15:02→17:58)
[2017-03-06 16:05] LABS: CHLORIDE,CL 103 mmol/L (101-111); SODIUM,NA 138 mmol/L (135-145)
[2017-03-06] MEDS ORDERED: LORazepam 2 MG/ML Syringe IVPUSH ONE (17:02)
[2017-03-06] MEDS ORDERED: Sodium Chloride 0.9% 1,000 ML IV ONE (17:02)
[2017-03-06] MEDS ORDERED: Acetaminophen 325 MG Tab PO PRN (17:58)
[2017-03-06] MEDS ORDERED: Docusate Sodium 100 MG Cap PO PRN (17:58)
[2017-03-06] MEDS ORDERED: Zolpidem 5 MG Tab PO PRN (17:58)
[2017-03-06] MEDS ORDERED: Ondansetron 4 MG/2 ML SDV IVPUSH PRN (17:58)
[2017-03-06] MEDS ORDERED: Ondansetron 4 MG Tab.DIS PO PRN (17:58)
--- NOTE | 2017-03-06 19:25 | PCM.HP ---
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 She also has a history of seizure disorder. She has not been on antiseizure medications. She had a seizure a few weeks ago and was planned to follow up with neurology The patient presented today with repeated seizure episodes. Some was witnessed and described as tonic-clonic seizure. Others were suspected when she woke up with urinary incontinence. Currently she is alert oriented, she is complaining of diffuse muscle ache. She denies knowledge of significant head trauma but the seizures have been associated with loss of consciousness. She has been on antic ablation with Coumadin. She has had no fever or chest pain shortness of breath abdominal pain lately. - Related Data Allergies/Adverse Reactions: Allergies Allergy/AdvReac Type Severity Reaction Status Date / Time acetaminophen Allergy Itching Verified 11/18/15 16:41 adhesive Allergy Other Verified 11/18/15 16:41 Latex, Natural Rubber Allergy Hives Verified 11/18/15 16:41 Penicillins Allergy Anaphylactic Verified 11/18/15 16:41 Shock Home Medications: Home Meds Ibuprofen 200 mg PO ASDIRECTED PRN 11/18/15 [History] Warfarin Sodium [Jantoven] 10 mg PO DAILY 03/06/17 [History] Past Medical History HEENT History: Reports: Impaired Vision Other HEENT History: wears glasses Cardiovascular History: Reports: Blood Clots/VTE/DVT Respiratory History: Reports: PE Other Respiratory History: blood clots a month and half go, was in [place], sent her home on lovenox shots, not in hospital Genitourinary History: Reports: None 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 , 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 Musculoskeletal History: Reports: None Neurological History: Reports: Seizure Psychiatric History: Reports: None Endocrine/Metabolic History: Reports: Obesity/BMI 30+ Hematologic History: Reports: None Other Hematologic History: protien c deficiency Immunologic History: Reports: None Oncologic (Cancer) History: Reports: None Dermatologic History: Reports: None - Infectious Disease History Infectious Disease History: Reports: Chicken Pox - Past Surgical History Head Surgeries/Procedures: Reports: None HEENT Surgical History: Reports: Other (See Below) GI Surgical History: Reports: Appendectomy Female Surgical History: Reports: Section, D&C Social & Family History - Family History Family Medical History: Noncontributory - Tobacco Use Smoking Status *Q: Light Tobacco Smoker Years of Tobacco use: 10 Packs/Tins Daily: 0.1 Used Tobacco, but Quit: Yes Month Tobacco Last Used: november Second Hand Smoke Exposure: Yes - Caffeine Use Caffeine Use: Reports: Coffee, Soda, Tea - Recreational Drug Use Recreational Drug Use: No - Sexual History Sexual History: Reports: Sexually Active - Living Situation & Occupation Living situation: Reports: with Significant Other Occupation: Employed H&P Review of Systems - Review of Systems: Review Of Systems: See Below General: Denies: Fever, Chills Pulmonary: Denies: Shortness of Breath Cardiovascular: Denies: Chest Pain Gastrointestinal: Denies: Abdominal Pain Genitourinary: Denies: Dysuria Psychiatric: Denies: Anxiety Neurological: Reports: Headache, Seizure, Syncope Exam - Exam Exam: See Below - Vital Signs Vital Signs: Last Vital Signs Temp 36.6 C 03/06/17 14:51 Pulse 67 03/06/17 17:39 Resp 14 03/06/17 17:39 BP 122/69 03/06/17 17:39 Pulse Ox 97 03/06/17 17:39 Weight: 95.254 kg - Exam Quality Assessment: No: Supplemental Oxygen General: Alert, Oriented Lungs: Clear to Auscultation, Normal Respiratory Effort Cardiovascular: Regular Rate, Regular Rhythm GI/Abdominal Exam: Normal Bowel Sounds, Soft, Other (Obese) Extremities: Normal Inspection, No Pedal Edema Neurological: Normal Gait Neuro Extensive - Mental Status: Alert, Oriented x3, Normal Mood/Affect, Normal Cognition, Memory Intact Neuro Extensive - Motor, Sensory, Reflexes: No: Motor/Sensory Deficits Psychiatric: Alert, Normal Affect, Normal Mood - Patient Data Lab Results Last 24 hrs: EKG per my reading shows normal sinus rhythm. Result Diagrams: 03/06/17 15:36 03/06/17 15:36 *Q Meaningful Use (ADM) - VTE *Q VTE Criteria *Q: - Stroke *Q Stroke Criteria *Q: - AMI *Q AMI Criteria *Q: - Problem List (1) Recurrent seizures SNOMED Code(s): 20676947 ICD Code: G40.909 - EPILEPSY, UNSP, NOT INTRACTABLE, WITHOUT STATUS EPILEPTICUS Status: Acute Current Visit: Yes (2) History of pulmonary embolus (PE) SNOMED Code(s): 238703272 ICD Code: Z86.711 - PERSONAL HISTORY OF PULMONARY EMBOLISM Status: Acute Current Visit: Yes Problem List Initiated/Reviewed/Updated: Yes Orders Last 24hrs: Active Orders 24 hr Category Date Time Status Head w wo Cont [CT] Routine Exams 03/06/17 18:45 Ordered INR,PT,PROTHROMBIN TIME [COAG] Routine Lab 03/06/17 18:33 Ordered Warfarin [Coumadin] Med 03/07/17 11:00 Pending 10 mg PO DAILY ONE Medication Orders Acetaminophen (Tylenol) 650 mg PO Q4H PRN PRN Reason: Pain (Mild 1-3)/fever Docusate Sodium (Colace) 100 mg PO BID PRN PRN Reason: Constipation Levetiracetam (Keppra) 500 mg PO BID KAREN Ondansetron HCl (Zofran Odt) 4 mg PO Q6H PRN PRN Reason: nausea, able to take PO Ondansetron HCl (Zofran) 4 mg IVPUSH Q6H PRN PRN Reason: Nausea/Vomiting Sodium Chloride (Saline Flush) 10 ml FLUSH ASDIRECTED PRN PRN Reason: Keep Vein Open Warfarin Sodium (Coumadin) 10 mg PO DAILY ONE Stop: 03/07/17 11:01 Zolpidem Tartrate (Ambien) 5 mg PO BEDTIME PRN PRN Reason: Sleep Assessment/Plan Comment:: recurrent seizure The patient says she has a personal history of seizure disorder. She says the last episodes were about 5 years ago. This appears that in the past few days and weeks has more recurrent seizure. She is high risk for injury given her chronic anticoagulation use. I will start the patient on Keppra. We will monitor now with seizure precaution. We'll need further follow-up with neurology for further testing and treatment. Obtain CT of the head given the anticoagulation, headache, seizure Obtain INR and continue anticoagulation if no bleeding noted on the CT.
[2017-03-06] MEDS: Morphine 2 MG/ML Syringe IVPUSH PRN ×2 (20:56→23:05)
[2017-03-06] MEDS: levETIRAcetam 500 MG Tab PO SCH (20:56)
[2017-03-07] MEDS: Morphine 2 MG/ML Syringe IVPUSH PRN (05:34)
[2017-03-07 06:55] LABS: CHLORIDE,CL 106 mmol/L (101-111); SODIUM,NA 138 mmol/L (135-145)
[2017-03-07 08:40] VITALS: BP 114/80
[2017-03-07] MEDS: levETIRAcetam 500 MG Tab PO SCH (09:52)
--- NOTE | 2017-03-07 10:02 | PCM.DCSUM1 ---
Discharge Summary - Hospital Course Free Text/Narrative:: 36-year-old lady with a history of a pulmonary embolism on anticoagulation. She presented with repeated episodes of seizure. Some was witnessed some on weakness. She does have a history of seizure disorder but had no medication. The patient was admitted and OBSERVED due to recurrent seizures. Since admission remained stable and had no seizure. She was started on Keppra. She already has an appointment with neurology to follow-up. She will be discharged in a stable condition. She will follow-up with her primary care physician to see if earlier neurological consultation can be arranged. Discussed to avoid situations like driving where she can her herself or others when a seizure with loss of consciousness happens. - Discharge Data Discharge Date: 03/07/17 Discharge Disposition: Home, Self-Care 01 Condition: Good - Discharge Diagnosis/Problem(s) (1) Recurrent seizures SNOMED Code(s): 73907593 ICD Code: G40.909 - EPILEPSY, UNSP, NOT INTRACTABLE, WITHOUT STATUS EPILEPTICUS Status: Acute Current Visit: Yes (2) History of pulmonary embolus (PE) SNOMED Code(s): 449969414 ICD Code: Z86.711 - PERSONAL HISTORY OF PULMONARY EMBOLISM Status: Acute Current Visit: Yes - Patient Instructions Diet: Heart Healthy Diet Activity: As Tolerated - Discharge Plan Prescriptions/Med Rec: levETIRAcetam [Keppra] 500 mg PO BID #60 tablet Home Medications: Home Meds Ibuprofen 200 mg PO ASDIRECTED PRN 11/18/15 [History] Warfarin Sodium [Jantoven] 10 mg PO DAILY 03/06/17 [History] levETIRAcetam [Keppra] 500 mg PO BID #60 tablet 03/07/17 [Rx] Referrals: Glenn Dumont MD [Physician] - (in 2-3 days) - General Info Date of Service: 03/07/17 Subjective Update: no seizure since admission c/o muscle aches - Review of Systems General: Denies: Fever Pulmonary: Denies: Shortness of Breath Cardiovascular: Denies: Chest Pain Gastrointestinal: Denies: Abdominal Pain Genitourinary: Denies: Dysuria - Patient Data Vitals - Most Recent: Last Vital Signs Temp 36.3 C 03/07/17 08:40 Pulse 68 03/07/17 08:40 Resp 20 03/07/17 08:40 BP 114/80 03/07/17 08:40 Pulse Ox 97 03/07/17 08:40 Weight - Most Recent: 95.254 kg I&O - Last 24 hours: Intake & Output 03/06/17 03/07/17 03/07/17 22:59 06:59 14:59 Intake Total 500 600 Balance 500 600 Lab Results - Last 24 hrs: Laboratory Results - last 24 hr 03/06/17 03/07/17 03/07/17 Range/Units 19:07 06:00 06:00 WBC 7.1 (5.0-10.0) 10^3/uL RBC 3.75 L (4.2-5.4) 10^6/uL Hgb 13.0 (12.0-16.0) g/dL Hct 39.0 (37.0-47.0) % MCV 104.0 H (80-100) fL MCH 34.7 H (27.0-34.0) pg MCHC 33.3 (33.0-35.0) g/dL Plt Count 240 (150-450) 10^3/uL Neut % (Auto) 53.4 (42.2-75.2) % Lymph % (Auto) 33.6 (20.5-50.1) % [place] % (Auto) 9.5 H (2-8) % Eos % (Auto) 3.1 H (1.0-3.0) % Baso % (Auto) 0.4 (0.0-1.0) % PT 20.7 H (9.0-12.0) SEC INR 2.1 H (0.9-1.2) Sodium 138 (135-145) mmol/L Potassium 4.1 (3.6-5.0) mmol/L Chloride 106 (101-111) mmol/L Carbon Dioxide 23.0 (21.0-31.0) mmol/L Anion Gap 13.1 BUN 11 (7-18) mg/dL Creatinine 0.7 (0.6-1.3) mg/dL Est Cr Clr Drug Dosing TNP Estimated GFR (MDRD) > 60 Glucose 93 (74-105) mg/dL Calcium 8.7 (8.4-10.2) mg/dl Phosphorus 3.8 (2.5-4.6) mg/dL Magnesium 2.0 (1.8-2.5) mg/dL Med Orders - Current: Current Medications Docusate Sodium (Colace) 100 mg PO BID PRN PRN Reason: Constipation Levetiracetam (Keppra) 500 mg PO BID KAREN Last Admin: 03/07/17 09:52 Dose: 500 mg Morphine Sulfate (Morphine) 1 mg IVPUSH Q2H PRN PRN Reason: Pain Last Admin: 03/07/17 05:34 Dose: 1 mg Ondansetron HCl (Zofran Odt) 4 mg PO Q6H PRN PRN Reason: nausea, able to take PO Ondansetron HCl (Zofran) 4 mg IVPUSH Q6H PRN PRN Reason: Nausea/Vomiting Sodium Chloride (Saline Flush) 10 ml FLUSH ASDIRECTED PRN PRN Reason: Keep Vein Open Warfarin Sodium (Coumadin) 10 mg PO DAILY ONE Stop: 03/07/17 11:01 Zolpidem Tartrate (Ambien) 5 mg PO BEDTIME PRN PRN Reason: Sleep Last Admin: 03/06/17 23:05 Dose: 5 mg Discontinued Medications Acetaminophen (Tylenol) 650 mg PO Q4H PRN PRN Reason: Pain (Mild 1-3)/fever Sodium Chloride (Normal Saline) 1,000 mls @ 999 mls/hr IV .BOLUS ONE Stop: 03/06/17 18:02 Last Admin: 03/06/17 17:38 Dose: 999 mls/hr Lorazepam (Ativan) 1 mg IVPUSH ONETIME ONE Stop: 03/06/17 17:03 Last Admin: 03/06/17 17:38 Dose: 1 mg Sodium Chloride (Saline Flush) 10 ml FLUSH ASDIRECTED PRN PRN Reason: Keep Vein Open - Exam General: Reports: Alert, Oriented Neck: Reports: Supple Lungs: Reports: Clear to Auscultation, Normal Respiratory Effort Cardiovascular: Reports: Regular Rate, Regular Rhythm Extremities: Normal Inspection, No Pedal Edema Skin: Reports: Warm, Dry *Q Meaningful Use (DIS) - VTE *Q VTE Criteria *Q: - Stroke *Q Stroke Criteria *Q: - AMI *Q AMI Criteria *Q:
[2017-03-07] MEDS ORDERED: Warfarin 5 MG Tab PO ONE (11:00)
--- NOTE | 2017-03-10 09:25 | EKG ---
03/06/2017- NANDO WASSERMAN - EKG per my reading shows sinus rhythm at the rate of 70. [facility] /[id number]
== END 2017-03-07 10:00 | disposition home or self-care (01) ==
LOC: DL.ED 14:06 → DL.MS 18:23
PROVIDERS: ADMIT Internal Medicine; ATTEND Internal Medicine
DX: G40.909 Epilepsy, unspecified, not intractable, without status epilepticus (principal); Z86.711 Personal history of pulmonary embolism; E66.9 Obesity, unspecified; Z79.01 Long term (current) use of anticoagulants; Z79.899 Other long term (current) drug therapy; Z88.8 Allergy status to other drugs, medicaments and biological substances; Z91.09 Other allergy status, other than to drugs and biological substances; Z88.0 Allergy status to penicillin; Z91.040 Latex allergy status; Z68.30 Body mass index [BMI] 30.0-30.9, adult; Z90.49 Acquired absence of other specified parts of digestive tract; Z98.890 Other specified postprocedural states; Z72.0 Tobacco use
CPT/HCPCS: 36415; 70450; 80048; 80053; 80305; 81001; 81025; 82550; 83615; 83735; 84100; 84443; 85025; 85610; 93005; 96374; 99285; A9270; G0480; J2060; J2270; J7030; 96375; 96376; 99284; G0378

== ENCOUNTER 2017-05-21 19:01 | Emergency (ER) | payer SELFPAY ==
[2017-05-21] MEDS ORDERED: Ketorolac 30 MG/ML SDV IVPUSH ONE ×2 (19:41→20:46)
[2017-05-21] MEDS ORDERED: Sodium Chloride 0.9% 1,000 ML IV ONE (19:41)
--- NOTE | 2017-05-21 19:44 | EDM.PDOC ---
ED HPI GENERAL MEDICAL PROBLEM - General Chief Complaint: General Stated Complaint: SEIZURE,HIGH FEVER [id number] Time Seen by Provider: 05/21/17 19:42 Source of Information: Reports: Patient History Limitations: Reports: No Limitations - History of Present Illness INITIAL COMMENTS - FREE TEXT/NARRATIVE: c/o f/c shaky all day, even had seizure takes keppra and wet her pants too. Generalized Pain Score (Numeric/FACES): 5 - Related Data Allergies Allergy/AdvReac Type Severity Reaction Status Date / Time acetaminophen Allergy Itching Verified 05/21/17 19:27 adhesive Allergy Other Verified 05/21/17 19:27 Latex, Natural Rubber Allergy Hives Verified 05/21/17 19:27 Penicillins Allergy Anaphylactic Verified 05/21/17 19:27 Shock Home Meds: Home Meds Ibuprofen 200 mg PO ASDIRECTED PRN 11/18/15 [History] Warfarin Sodium [Jantoven] 10 mg PO DAILY 03/06/17 [History] levETIRAcetam [Keppra] 500 mg PO BID #60 tablet 03/07/17 [Rx] Past Medical History HEENT History: Reports: Impaired Vision Other HEENT History: wears glasses Cardiovascular History: Reports: Blood Clots/VTE/DVT Respiratory History: Reports: PE Other Respiratory History: blood clots a month and half go, was in [place], sent her home on lovenox shots, not in hospital Genitourinary History: Reports: None 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 , 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 Musculoskeletal History: Reports: None Neurological History: Reports: Seizure Psychiatric History: Reports: None Endocrine/Metabolic History: Reports: Obesity/BMI 30+ Hematologic History: Reports: None Other Hematologic History: protien c deficiency Immunologic History: Reports: None Oncologic (Cancer) History: Reports: None Dermatologic History: Reports: None - Infectious Disease History Infectious Disease History: Reports: Chicken Pox - Past Surgical History Head Surgeries/Procedures: Reports: None HEENT Surgical History: Reports: Other (See Below) GI Surgical History: Reports: Appendectomy Female Surgical History: Reports: Section, D&C Social & Family History - Family History Family Medical History: Noncontributory - Tobacco Use Smoking Status *Q: Current Every Day Smoker Years of Tobacco use: 23 Packs/Tins Daily: 10 Used Tobacco, but Quit: Yes Month Tobacco Last Used: november Second Hand Smoke Exposure: Yes - Caffeine Use Caffeine Use: Reports: Coffee, Tea - Recreational Drug Use Recreational Drug Use: No - Sexual History Sexual History: Reports: Sexually Active - Living Situation & Occupation Living situation: Reports: with Significant Other Occupation: Employed ED ROS GENERAL - Review of Systems Review Of Systems: ROS reveals no pertinent complaints other than HPI. ED EXAM, GENERAL - Physical Exam Exam: See Below Exam Limited By: No Limitations General Appearance: Alert, WD/WN, Mild Distress, Other (distraught) Eye Exam: Bilateral Eye: PERRL (pupils ess ER @ 4mm) Ears: Hearing Grossly Normal Throat/Mouth: Normal Voice, No Airway Compromise, Inflammation Head: Atraumatic Neck: Non-Tender, Full Range of Motion Respiratory/Chest: No Respiratory Distress Cardiovascular: Regular Rate, Rhythm GI/Abdominal: Soft, Non-Tender Neurological: Alert, Oriented, Normal Cognition, Normal Gait, No Motor/Sensory Deficits Psychiatric: Tearful Skin Exam: Warm, Dry, Normal Color Lymphatic: No Adenopathy Course - Vital Signs Last Recorded V/S: Last Vital Signs Temp 37.6 C 05/21/17 21:04 Pulse 98 05/21/17 21:04 Resp 20 05/21/17 21:04 BP 106/57 L 05/21/17 21:04 Pulse Ox 100 05/21/17 21:04 - Orders/Labs/Meds Orders: Active Orders 24 hr Category Date Time Status CULTURE BLOOD [BC] Stat Lab 05/21/17 19:20 Received CULTURE STREP A CONFIRMATION [] Stat Lab 05/21/17 19:38 Results STREP SCRN A RAPID W CULT CONF [RM] Stat Lab 05/21/17 19:38 Results Labs: Laboratory Tests 05/21/17 05/21/17 05/21/17 Range/Units 19:20 19:20 19:20 WBC 9.8 (5.0-10.0) 10^3/uL RBC 4.09 L (4.2-5.4) 10^6/uL Hgb 14.0 (12.0-16.0) g/dL Hct 41.5 (37.0-47.0) % MCV 101.5 H (80-100) fL MCH 34.2 H (27.0-34.0) pg MCHC 33.7 (33.0-35.0) g/dL Plt Count 257 (150-450) 10^3/uL Neut % (Auto) 85.0 H (42.2-75.2) % Lymph % (Auto) 10.7 L (20.5-50.1) % [place] % (Auto) 3.8 (2-8) % Eos % (Auto) 0.4 L (1.0-3.0) % Baso % (Auto) 0.1 (0.0-1.0) % PT (9.0-12.0) SEC INR (0.9-1.2) D-Dimer, Quantitative (0-400) ng/mL Sodium 134 L (135-145) mmol/L Potassium 4.1 (3.6-5.0) mmol/L Chloride 100 L (101-111) mmol/L Carbon Dioxide 23.0 (21.0-31.0) mmol/L Anion Gap 15.1 BUN 11 (7-18) mg/dL Creatinine 0.8 (0.6-1.3) mg/dL Est Cr Clr Drug Dosing TNP Estimated GFR (MDRD) > 60 BUN/Creatinine Ratio 13.75 Glucose 101 (74-105) mg/dL Lactic Acid 1.0 (0.5-2.2) mmol/L Calcium 8.5 (8.4-10.2) mg/dl Total Bilirubin 0.9 (0.2-1.0) mg/dL AST 27 (10-42) IU/L ALT 22 (10-60) IU/L Alkaline Phosphatase 91 (42-121) IU/L Total Protein 7.4 (6.7-8.2) g/dl Albumin 3.9 (3.2-5.5) g/dl Globulin 3.5 Albumin/Globulin Ratio 1.11 Urine Color (YELLOW) Urine Appearance (CLEAR) Urine pH (5.0-9.0) Ur Specific [place] (1.005-1.030) Urine Protein (NEGATIVE) Urine Glucose (UA) (NEGATIVE) Urine Ketones (NEGATIVE) Urine Occult Blood (NEGATIVE) Urine Nitrite (NEGATIVE) Urine Bilirubin (NEGATIVE) Urine Urobilinogen (0.2-1.0) mg/dL Ur Leukocyte Esterase (NEGATIVE) Urine RBC /HPF Urine WBC (0-5/HPF) /HPF Ur Epithelial Cells /HPF Urine Bacteria (0-FEW/HPF) /HPF Urine Other Urine HCG, Qual 05/21/17 05/21/17 05/21/17 Range/Units 19:20 20:55 20:55 WBC (5.0-10.0) 10^3/uL RBC (4.2-5.4) 10^6/uL Hgb (12.0-16.0) g/dL Hct (37.0-47.0) % MCV (80-100) fL MCH (27.0-34.0) pg MCHC (33.0-35.0) g/dL Plt Count (150-450) 10^3/uL Neut % (Auto) (42.2-75.2) % Lymph % (Auto) (20.5-50.1) % [place] % (Auto) (2-8) % Eos % (Auto) (1.0-3.0) % Baso % (Auto) (0.0-1.0) % PT 15.6 H (9.0-12.0) SEC INR 1.5 H (0.9-1.2) D-Dimer, Quantitative 123 (0-400) ng/mL Sodium (135-145) mmol/L Potassium (3.6-5.0) mmol/L Chloride (101-111) mmol/L Carbon Dioxide (21.0-31.0) mmol/L Anion Gap BUN (7-18) mg/dL Creatinine (0.6-1.3) mg/dL Est Cr Clr Drug Dosing Estimated GFR (MDRD) BUN/Creatinine Ratio Glucose (74-105) mg/dL Lactic Acid (0.5-2.2) mmol/L Calcium (8.4-10.2) mg/dl Total Bilirubin (0.2-1.0) mg/dL AST (10-42) IU/L ALT (10-60) IU/L Alkaline Phosphatase (42-121) IU/L Total Protein (6.7-8.2) g/dl Albumin (3.2-5.5) g/dl Globulin Albumin/Globulin Ratio Urine Color Yellow (YELLOW) Urine Appearance Slightly cloudy (CLEAR) Urine pH 5.5 (5.0-9.0) Ur Specific [place] 1.020 (1.005-1.030) Urine Protein Negative (NEGATIVE) Urine Glucose (UA) Negative (NEGATIVE) Urine Ketones Negative (NEGATIVE) Urine Occult Blood Moderate H (NEGATIVE) Urine Nitrite Negative (NEGATIVE) Urine Bilirubin Negative (NEGATIVE) Urine Urobilinogen 0.2 (0.2-1.0) mg/dL Ur Leukocyte Esterase Negative (NEGATIVE) Urine RBC 0-5 /HPF Urine WBC 0-5 (0-5/HPF) /HPF Ur Epithelial Cells Many H /HPF Urine Bacteria Many H (0-FEW/HPF) /HPF Urine Other See note Urine HCG, Qual Negative Meds: Medications Discontinued Medications Generic Name Dose Route Start Last Admin Trade Name Jose PRN Reason Stop Dose Admin Sodium Chloride 1,000 mls @ 999 mls/hr 05/21/17 19:41 05/21/17 19:48 Normal Saline IV 05/21/17 20:41 999 mls/hr .BOLUS ONE Administration Ketorolac Tromethamine 15 mg 05/21/17 19:41 05/21/17 19:50 Toradol IVPUSH 05/21/17 19:42 15 mg ONETIME ONE Administration Ketorolac Tromethamine 15 mg 05/21/17 20:46 05/21/17 20:59 Toradol IVPUSH 05/21/17 20:47 15 mg ONETIME ONE Administration - Re-Assessments/Exams Free Text/Narrative Re-Assessment/Exam: 05/21/17 20:48 re-exam; s/p IV toradol = minimal, now chest hurts feeling like hundreds of needles poking her. 05/21/17 23:13 results discussed with family. pt sleeping arousable no c/o Departure - Departure Time of Disposition: 23:14 Disposition: Home, Self-Care 01 Condition: Good Clinical Impression: Viremia - Discharge Information Instructions: Viral Respiratory Infection, [id number] Forms: ED Department Discharge Additional Instructions: 1) rest and sleep as much as possible 2) take motrin as needed for aches and fever 3) recheck if has any changes or concerns - My Orders Last 24 Hours: My Active Orders 05/21/17 19:20 CULTURE BLOOD [BC] Stat 05/21/17 19:38 CULTURE STREP A CONFIRMATION [RM] Stat STREP SCRN A RAPID W CULT CONF [RM] Stat - Assessment/Plan Last 24 Hours: My Active Orders 05/21/17 19:20 CULTURE BLOOD [BC] Stat 05/21/17 19:38 CULTURE STREP A CONFIRMATION [RM] Stat STREP SCRN A RAPID W CULT CONF [RM] Stat
[2017-05-21 19:50] LABS: SODIUM,NA 134 mmol/L (135-145)
[2017-05-21 19:51] LABS: CHLORIDE,CL 100 mmol/L (101-111)
[2017-05-21 23:32] VITALS: BP 128/71
== END 2017-05-21 23:25 | disposition home or self-care (01) ==
LOC: DL.ED 19:01
DX: B34.9 Viral infection, unspecified (principal); Z79.01 Long term (current) use of anticoagulants; Z79.899 Other long term (current) drug therapy; F17.210 Nicotine dependence, cigarettes, uncomplicated; E66.9 Obesity, unspecified
CPT/HCPCS: 36415; 71010; 80053; 81001; 81025; 83605; 85025; 85379; 85610; 87040; 87081; 87430; 87804; 96361; 96374; 96376; 99284; J1885; J7030

== ENCOUNTER 2017-07-24 14:27 | Emergency (ER) | payer OTHER ==
--- NOTE | 2017-07-24 14:50 | EDM.PDOC ---
ED HPI GENERAL MEDICAL PROBLEM - General Chief Complaint: Respiratory Problem Stated Complaint: BREATHING PROBLEMS, COUGHING, [id number] Time Seen by Provider: 07/24/17 14:49 Source of Information: Reports: Patient, Old Records, RN, RN Notes Reviewed History Limitations: Reports: No Limitations - History of Present Illness INITIAL COMMENTS - FREE TEXT/NARRATIVE: Arrives from home by POV with c/o dry cough for over a month. Pt states that a month or so ago she had a cold that went into her chest, and after the cold Sx' s went away she continued to cough. Denies sputum production, fever, chills, or shortness of breath. Admits to wheezing at times. Reports the her head and abdominal muscles hurt when she coughs. Also pt has been coughing so hard that she "leaks urine" with coughing and she noticed a small amount of vaginal or urinary blood on/off today. Pt states her periods are "wildly irregular" so she doesn't know it she might be getting her period or not. Duration: Constant Location: Reports: Chest Quality: Reports: Sharp (with coughing) Severity: Moderate Improves with: Reports: None Worsens with: Reports: None Context: Denies: Sick Contact Associated Symptoms: Reports: No Other Symptoms Chest Pain Score (Numeric/FACES): 6 - Related Data Allergies Allergy/AdvReac Type Severity Reaction Status Date / Time acetaminophen Allergy Itching Verified 05/21/17 19:27 adhesive Allergy Other Verified 05/21/17 19:27 Latex, Natural Rubber Allergy Hives Verified 05/21/17 19:27 Penicillins Allergy Anaphylactic Verified 05/21/17 19:27 Shock Home Meds: Home Meds Ibuprofen 200 mg PO ASDIRECTED PRN 11/18/15 [History] Warfarin Sodium [Jantoven] 10 mg PO DAILY 03/06/17 [History] levETIRAcetam [Keppra] 500 mg PO BID #60 tablet 03/07/17 [Rx] Past Medical History HEENT History: Reports: Impaired Vision Other HEENT History: wears glasses Cardiovascular History: Reports: Blood Clots/VTE/DVT Respiratory History: Reports: PE Other Respiratory History: blood clots a month and half go, was in [place], sent her home on lovenox shots, not in hospital Genitourinary History: Reports: None 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 , 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 Musculoskeletal History: Reports: None Neurological History: Reports: Seizure Psychiatric History: Reports: None Endocrine/Metabolic History: Reports: Obesity/BMI 30+ Hematologic History: Reports: None Other Hematologic History: protien c deficiency Immunologic History: Reports: None Oncologic (Cancer) History: Reports: None Dermatologic History: Reports: None - Infectious Disease History Infectious Disease History: Reports: Chicken Pox - Past Surgical History Head Surgeries/Procedures: Reports: None HEENT Surgical History: Reports: Other (See Below) GI Surgical History: Reports: Appendectomy Female Surgical History: Reports: Section, D&C Social & Family History - Family History Family Medical History: Noncontributory - Tobacco Use Smoking Status *Q: Current Every Day Smoker Tobacco Use Within Last Twelve Months: Cigarettes Years of Tobacco use: 23 Packs/Tins Daily: 10 Used Tobacco, but Quit: Yes Month Tobacco Last Used: november Second Hand Smoke Exposure: Yes - Caffeine Use Caffeine Use: Reports: Coffee, Tea - Recreational Drug Use Recreational Drug Use: No - Sexual History Sexual History: Reports: Sexually Active - Living Situation & Occupation Living situation: Reports: with Significant Other Occupation: Employed ED ROS GENERAL - Review of Systems Review Of Systems: ROS reveals no pertinent complaints other than HPI. ED EXAM, GENERAL - Physical Exam Exam: See Below Exam Limited By: No Limitations General Appearance: Alert, WD/WN, No Apparent Distress, Obese Eye Exam: Bilateral Eye: Normal Inspection Ears: Normal External Exam, Normal Canal, Hearing Grossly Normal, Normal TMs Nose: Normal Inspection, Normal Mucosa, No Blood Throat/Mouth: Normal Inspection, Normal Lips, Normal Oropharynx, Normal Voice, No Airway Compromise Head: Atraumatic, Normocephalic Neck: Normal Inspection, Supple, Non-Tender, Full Range of Motion. No: Lymphadenopathy (L), Lymphadenopathy (R) Respiratory/Chest: No Respiratory Distress, No Accessory Muscle Use, Chest Non- Tender, Crackles (mild in upper and mid-lung gomez), Wheezing (faint, scattered and intermittent) Cardiovascular: Regular Rate, Rhythm, No Edema GI/Abdominal: Normal Bowel Sounds, Soft, Non-Tender, No Distention Back Exam: Normal Inspection Extremities: Normal Inspection Neurological: Alert, Oriented, CN II-XII Intact, Normal Cognition, Normal Gait, No Motor/Sensory Deficits Psychiatric: Normal Affect, Normal Mood Skin Exam: Warm, Dry, Intact Course - Vital Signs Last Recorded V/S: Last Vital Signs Temp 37.1 C 07/24/17 17:04 Pulse 90 07/24/17 17:04 Resp 18 07/24/17 17:04 BP 110/74 07/24/17 17:04 Pulse Ox 96 07/24/17 17:04 - Orders/Labs/Meds Orders: Active Orders 24 hr Category Date Time Status RT Aerosol Therapy [RC] ASDIRECTED Care 07/24/17 16:24 Active RT Post Treatment Assessment [RC] Click to Edit Care 07/24/17 16:28 Active RT Pre-Treatment Assessment [RC] Click to Edit Care 07/24/17 16:28 Active CULTURE STREP A CONFIRMATION [RM] Stat Lab 07/24/17 15:02 Results STREP SCRN A RAPID W CULT CONF [RM] Stat Lab 07/24/17 15:02 Results Labs: Laboratory Tests 07/24/17 07/24/17 07/24/17 Range/Units 15:01 15:01 16:33 WBC 10.3 H (5.0-10.0) 10^3/uL RBC 3.90 L (4.2-5.4) 10^6/uL Hgb 13.4 (12.0-16.0) g/dL Hct 39.8 (37.0-47.0) % MCV 102.1 H (80-100) fL MCH 34.4 H (27.0-34.0) pg MCHC 33.7 (33.0-35.0) g/dL Plt Count 267 (150-450) 10^3/uL Neut % (Auto) 65.6 (42.2-75.2) % Lymph % (Auto) 22.8 (20.5-50.1) % [place] % (Auto) 8.9 H (2-8) % Eos % (Auto) 2.5 (1.0-3.0) % Baso % (Auto) 0.2 (0.0-1.0) % PT (9.0-12.0) SEC INR (0.9-1.2) Urine Color Yellow (YELLOW) Urine Appearance Cloudy (CLEAR) Urine pH 6.0 (5.0-9.0) Ur Specific [place] >= 1.030 (1.005-1.030) Urine Protein Negative (NEGATIVE) Urine Glucose (UA) Negative (NEGATIVE) Urine Ketones Negative (NEGATIVE) Urine Occult Blood Moderate H (NEGATIVE) Urine Nitrite Negative (NEGATIVE) Urine Bilirubin Negative (NEGATIVE) Urine Urobilinogen 0.2 (0.2-1.0) mg/dL Ur Leukocyte Esterase Negative (NEGATIVE) Urine RBC 10-20 H /HPF Urine WBC 0-5 (0-5/HPF) /HPF Ur Epithelial Cells Moderate H /HPF Urine Bacteria Rare (0-FEW/HPF) /HPF Urine Mucus Moderate H /LPF Urine HCG, Qual Negative 07/24/17 Range/Units 16:33 WBC (5.0-10.0) 10^3/uL RBC (4.2-5.4) 10^6/uL Hgb (12.0-16.0) g/dL Hct (37.0-47.0) % MCV (80-100) fL MCH (27.0-34.0) pg MCHC (33.0-35.0) g/dL Plt Count (150-450) 10^3/uL Neut % (Auto) (42.2-75.2) % Lymph % (Auto) (20.5-50.1) % [place] % (Auto) (2-8) % Eos % (Auto) (1.0-3.0) % Baso % (Auto) (0.0-1.0) % PT 14.3 H (9.0-12.0) SEC INR 1.4 H (0.9-1.2) Urine Color (YELLOW) Urine Appearance (CLEAR) Urine pH (5.0-9.0) Ur Specific [place] (1.005-1.030) Urine Protein (NEGATIVE) Urine Glucose (UA) (NEGATIVE) Urine Ketones (NEGATIVE) Urine Occult Blood (NEGATIVE) Urine Nitrite (NEGATIVE) Urine Bilirubin (NEGATIVE) Urine Urobilinogen (0.2-1.0) mg/dL Ur Leukocyte Esterase (NEGATIVE) Urine RBC /HPF Urine WBC (0-5/HPF) /HPF Ur Epithelial Cells /HPF Urine Bacteria (0-FEW/HPF) /HPF Urine Mucus /LPF Urine HCG, Qual Rapid strep: Negative Influenza A/B: Negative Meds: Medications Discontinued Medications Generic Name Dose Route Start Last Admin Trade Name Freq PRN Reason Stop Dose Admin Albuterol 6.7 gm 12/22/17 16:28 07/24/17 16:40 Proventil Hfa INH 07/24/17 16:29 Not Given ONETIME ONE Albuterol/Ipratropium 3 ml 07/24/17 16:23 07/24/17 16:40 Duoneb 3.0-0.5 Mg/3 Ml NEB 07/24/17 16:24 3 ml ONETIME ONE Administration Prednisone 60 mg 07/24/17 16:24 07/24/17 16:51 Prednisone PO 07/24/17 16:25 60 mg ONETIME ONE Administration - Radiology Interpretation Free Text/Narrative:: 2V CXR: no acute process per Rad. report. Departure - Departure Time of Disposition: 17:14 Disposition: Home, Self-Care 01 Condition: Fair Clinical Impression: Bronchitis, Pleurisy without effusion, History of pulmonary embolus (PE), Bronchospasm with bronchitis, acute - Discharge Information Instructions: Acute Bronchitis, [id number], Bronchospasm, Adult, [id number] Forms: ED Department Discharge Additional Instructions: Rx: Prednisone 20mg *Take with food. Rx: Phenergan (Promethazine) with Codeine Syrup *Do not drive while under the influence of this medication. Rx: Zyrtec 10mg Abstain from smoking, and from smoke exposure. Follow up in clinic next week for recheck of your Warfarin blood level and cough recheck. - My Orders Last 24 Hours: My Active Orders 07/24/17 15:02 CULTURE STREP A CONFIRMATION [RM] Stat STREP SCRN A RAPID W CULT CONF [RM] Stat 07/24/17 16:24 RT Aerosol Therapy [RC] ASDIRECTED 07/24/17 16:28 RT Post Treatment Assessment [RC] Click to Edit RT Pre-Treatment Assessment [RC] Click to Edit - Assessment/Plan Last 24 Hours: My Active Orders 07/24/17 15:02 CULTURE STREP A CONFIRMATION [RM] Stat STREP SCRN A RAPID W CULT CONF [RM] Stat 07/24/17 16:24 RT Aerosol Therapy [RC] ASDIRECTED 07/24/17 16:28 RT Post Treatment Assessment [RC] Click to Edit RT Pre-Treatment Assessment [RC] Click to Edit
[2017-07-24] MEDS ORDERED: Albuterol/Ipratropium 3.0-0.5 MG/3 ML Neb Soln NEB ONE (16:23)
[2017-07-24] MEDS ORDERED: predniSONE 20 MG Tab PO ONE (16:24)
[2017-07-24] MEDS ORDERED: Albuterol 6.7 GM Inhaler INH ONE (16:28)
[2017-07-24 17:05] VITALS: BP 110/74
== END 2017-07-24 17:37 | disposition home or self-care (01) ==
LOC: DL.ED 14:27
DX: J20.9 Acute bronchitis, unspecified (principal); R09.1 Pleurisy; Z86.711 Personal history of pulmonary embolism; F17.210 Nicotine dependence, cigarettes, uncomplicated; Z79.01 Long term (current) use of anticoagulants; Z88.0 Allergy status to penicillin; Z88.6 Allergy status to analgesic agent; Z91.048 Other nonmedicinal substance allergy status; Z91.040 Latex allergy status
CPT/HCPCS: 36415; 71020; 81001; 81025; 85025; 85610; 87081; 87430; 87804; 99284; A9270